=== PATIENT | male | born 1985 | race Native Hawaiian/Other Pacific Islander ===

== ENCOUNTER 2017-12-26 21:15 | Inpatient (IN) | payer MEDICAID ==
--- NOTE | 2017-12-26 21:30 | C.PDOC ---
History Of Present Illness 32 year old male presents to the ED as a transfer from [facility] to be admitted to the Psychiatry Unit. Patient has a history of Schizophrenia. Chief Complaint (Nursing): Psychiatric Evaluation History Per: Patient, Other ([facility] paperwork ) History/Exam Limitations: no limitations Suicide/Self Injury Attempted (Context): None Modifying Factor(s): None Past Medical History Reviewed: Historical Data, Nursing Documentation, Vital Signs Vital Signs: Last Vital Signs Temp 98.2 F 12/26/17 21:20 Pulse 68 12/26/17 21:20 Resp 20 12/26/17 21:20 BP 136/96 H 12/26/17 21:20 Pulse Ox 99 12/26/17 21:20 - Medical History PMH: Schizophrenia Surgical History: No Surg Hx Family History: States: No Known Family Hx - Social History Hx Alcohol Use: Yes Hx Substance Use: No - Immunization History Hx Tetanus Toxoid Vaccination: No Hx Influenza Vaccination: No Hx Pneumococcal Vaccination: No Review Of Systems Except As Marked, All Systems Reviewed And Found Negative. Physical Exam - Physical Exam Appears: Non-toxic, No Acute Distress Skin: Warm, Dry, No Rash Head: Atraumatic, Normacephalic Eye(s): bilateral: Normal Inspection Nose: Normal Oral Mucosa: Moist Neck: Normal ROM, Supple Chest: Symmetrical Cardiovascular: Rhythm Regular Respiratory: Normal Breath Sounds, No Rales, No Rhonchi, No Wheezing Gastrointestinal/Abdominal: Soft, No Tenderness Extremity: Normal ROM Neurological/Psych: Oriented x3, Normal Speech Gait: Steady ED Course And Treatment O2 Sat by Pulse Oximetry: 99 (RA) Pulse Ox Interpretation: Normal Disposition Discussed With Dr.: Tereza Rodrigues Doctor Will See Patient In The: Hospital Counseled Patient/Family Regarding: Diagnosis - Disposition Disposition: HOSPITALIZED Disposition Time: 21:34 Condition: STABLE Forms: [facility] (Italian) - Clinical Impression Clinical Impression: Schizophrenia - Scribe Statement The provider has reviewed the documentation as recorded by the Scribe Adela Martinez All medical record entries made by the Scribe were at my direction and personally dictated by me. I have reviewed the chart and agree that the record accurately reflects my personal performance of the history, physical exam, medical decision making, and the department course for this patient. I have also personally directed, reviewed, and agree with the discharge instructions and disposition.
--- NOTE | 2017-12-26 22:13 | PCM.BM ---
<Sania Marshall - Last Filed: 12/26/17 22:07> Treatment Plan Problems - Problems identified on initial assessmt Auditory Hallucination Date Initiated: 12/26/17 Time Initiated: 22:08 Assessment reference: NA Status: Active Anxiety Date Initiated: 12/26/17 Time Initiated: 22:15 Assessment reference: NA Status: Active Treatment assets and liabiliti Patient Assests: adapts well, cooperative, educated, self-reliant, ADL independent, good support system, negotiates basic needs, cognitively intact Patient Liabilities: live alone (Lives with mother), substance abuse (None), medical problems (None) - Milieu Protocol Maintain good personal hygiene: daily Encourage regular showers, daily Remind patient to perform daily oral care, daily Assist patient to perform ADL's (Self), other Assist patient to perform ADL's Conduct patient checks and document Observation sheet: Q15 minutes (Safety) Maintain personal safety: every shift Educate patient to report safety concerns to staff, every shift Monitor environment for contraband/sharps Medication safety: Monitor for expected outcome, potential side effects: every shift, Assess barriers to learning: every shift, Assess readiness for medication education: every shift <Josh Macario - Last Filed: 12/29/17 11:29> - Diagnosis (1) Schizophrenia Status: Acute Interventions: 12/29/17 11:29 * Assess/adjust medications daily and /or as needed * See patient on an individual basis 7x/week to assess status of hallucinations * Discuss risks, benefits, side effects and alternatives of medications * <Rosalva Hardwick - Last Filed: 12/29/17 13:37> Family Contact Family involvement: Family/SO is involved Family contact: Patient agrees to contact Family contact name: Taisha Cheatham-mother Family contacted how many times per week?: 1 - Goals for Treatment Patient goals for treatment: "I need an outpatient program." Discharge/Continuing Care - Education Needs Education Needs: Patient Medication, Patient Coping Skills - Discharge Discharge Criteria: Tolerates medication w/o severe side effects, Reduction of target symptoms Discharge to:: Home, With Family - Treatment Team Participation Discussed with Family/SO: No Was Patient/Family/SO present at Treatment Team Meeting: Yes
[2017-12-29] MEDS ORDERED: Pneumococcal 23-Valent Vaccine IM ONE (10:00)
[2017-12-29] MEDS ORDERED: Influenza Vaccine 60 MCG/0.5 ML SYR (3 yr & up) IM ONE (10:00)
--- NOTE | 2017-12-29 11:23 | PCM.PYCHPN ---
Psychiatric Progress Note - Psychiatric Progress Note Patient seen today, length of contact: 15 min Patient Chief Complaint: I am feeling jose luis.' Problems Identified/Issues Discussed: Patient seen and evaluated, chart reviewed and discussed with the nurse. Pt reports reports irritability and agitation. Pt remained disorganized and internally preoccupied. He remained isolated and withdrawn, and confined to his room. He denies any auditory hallucinations, visual hallucinations, or any paranoia. Patient is compliant with medications and denies any side effects. Symptoms are improving but pt needs more time to stabilize. Support and psychoeducation given. Medication Change: Yes Medical Record Reviewed: Yes Mental Status Examination - Cognitive Function Orientation: Person, Place, Situation, Time Memory: Intact Attention: WNL Concentration: Poor Association: Loose Fund of Knowledge: WNL - Mood Mood: Depressed, Anxious - Affect Affect: Constricted - Speech Speech: Soft - Language Language: Anomia - Formal Thought Process Formal Thought Process: Hallucinations, Delusions, Paranoia, Loosening of associations, Circumstantial - Suicidal Ideation Suicidal Ideation: No - Homicidal Ideation Homicidal Ideation: No Goal/Treatment Plan - Goal/Treatment Plan Need for Continued Stay: Severe depression anxiety, Severe functional impairment Progress Toward Problem(s) and Goals/Treatment Plan: Bipolar disorder MRE depressed severe with psychotic features R/O Schizoaffective disorder bipolar type CBT Psychoeducation Supportive therapy, group therapy, individual therapy Prolixin 5 mg by mouth twice a day Cogentin 1 mg by mouth twice a day Trazodone 100 mg by mouth daily at bedtime Hydroxyzine 25 mg by mouth every 6 hours when necessary Lamictal 25 mg Po Daily Aripiprazole 10 mg by mouth daily at bedtime - Smoking Cessation Smoking Cessation Initiated: No
--- NOTE | 2017-12-29 21:20 | PCM.PSYCH ---
Initial Psychiatric Evaluation - Initial Psychiatric Evaluation Legal Status: Capacity Chief Complaint (in patient's own words): I HAD AN ARGUMENT WITH MY PARENTS BEXCAUSE THEY REFUSEDTO ORDER TAKE OUT FOR ME. THEY POWDER NEDICINE AND PIUT IT IN MY FOOD Patient's Reaction to Hospitalization: I AM UNSURE WHY I AM HERE History of Present Illness and Precipitating Events: PT IS A 32 YEAR OLD SINGLE DOMICILED UNEMPLOYED MALE WHO ARGUED WITH PARENTS. PT HAD BEEN PRESCRIBED LATU[employer] WHICH INSURANCE DID NOT COVER AND COST OVER 1600NDOLLARS A MONTH. PT STATED HIS FATHER SAID THAT IS HIS TAKE HOME PAY FOR T6WO WEEKS. PT HAS HAD PREVIOUS HOSPITALIZATIONS AT [facility]. HE WAS HOSPITALIZED THERE AFTER ARGUMENT WITH HIS PPARENTS . PT HAS HAD ONE SUICIDE ATTEMPT WHERE HE TRIEED TO KILL HIMSELF BY OVERDOSING ON VODKA. 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 Current Medications: Active Medications Generic Name Dose Route Start Last Admin Trade Name Freq PRN Reason Stop Dose Admin Aripiprazole 10 mg 12/28/17 10:00 12/29/17 09:45 Abilify PO 10 mg DAILY MAKENNA Administration Fluphenazine HCl 5 mg 12/29/17 12:00 12/29/17 17:09 Prolixin PO 5 mg BID MAKENNA Administration Hydroxyzine HCl 50 mg 12/27/17 00:38 12/27/17 00:46 Atarax PO 50 mg Q6 PRN Administration Anxiety Topiramate 25 mg 12/28/17 18:00 12/29/17 17:09 Topamax PO 25 mg BID MAKENNA Administration Past Psychiatric History - Past Psychiatric History Prior Professional Help: SEE HPI Pertinent Medical Hx (Current Medical&Sleep Prob, Allergies): Allergies Allergy/AdvReac Type Severity Reaction Status Date / Time pollen extracts Allergy Verified 12/26/17 21:23 Review of Systems - EENT Eyes: UNREMARKABLE Nose/Mouth/Throat: UNREMARKABLE - Cardiovascular Cardiovascular: UNREMARKABLE - Respiratory Respiratory: UNREMARKABLE - Gastrointestinal Gastrointestinal: UNREMARKABLE - Genitourinary Genitourinary: UNREMARKABLE - Reproductive: Male Reproductive:Male: UNREMARKABLE - Musculoskeletal Musculoskeletal: UNREMARKABLE - Integumentary Integumentary: UNREMARKABLE - Neurological Neurological: UNREMARKABLE - Psychiatric Psychiatric: Memory Loss, Paranoia - Endocrine Endocrine: UNREMARKABLE - Hematologic/Lymphatic Hematologic: UNREMARKABLE Mental Status Examination - Personal Presentation Personal Presentation: Looks younger than stated age - Affect Affect: Broad - Motor Activity Motor Activity: Calm - Reliability in Providing Information Reliability in Providing Information: Good - Speech Speech: Organized, Relevant, Coherent - Mood Mood: Neutral - Formal Thought Process Formal Thought Process: Delusions, Paranoia - Obsessions/Compulsions Obsessions: No Compulsions: No - Cognitive Functions Orientation: Person, Place, Situation, Time Attention/Concentration: Attentive Abstract Thinking: As evidence by abstract perception of proverbs Judgement: Intact, as evidence by: Other Memory: Recent intact, as evidence by: Ability to recall events of the day, Remote intact, as evidenced by: Other - Risk Risk: Elopement, Diminished functioning - Strength & Assets Inventory Strength & Assets Inventory: Intelligence, Education, Employment history - Limitations Limitations: Other DSM 5 DX - DSM 5 DSM 5 Diagnosis: BIPOLAR DISORDER ABILIFY 10 MG PO QDAILY CBT DC SUPPORTIVE INDIVIDUAL PSYCHOTHERAPY - Recommended/Plan of Treatment Treatment Recommendations and Plan of Treatment: BIPOLAR DISORDER VS SCHIZOAFFECTIVE DISORDER ABILIFY DC CBT SUPPORTIVE PSYCHOTHERAPY Projected ELOS: 10 DAYS Prognosis: FAIR Discharge Plan and Discharge Criteria: NO PARANOIA - Smoking Cessation Smoking Cessation Initiated: No
--- NOTE | 2017-12-29 21:29 | PCM.PYCHPN ---
Psychiatric Progress Note - Psychiatric Progress Note Patient seen today, length of contact: 15 min Patient Chief Complaint: I NEED TO GET MY OWN PLACE Problems Identified/Issues Discussed: PT SEEN AND EXAMINED DISCUSSED WITH STAFF DISCUSSEDWITH PT WHY HE THINKS PARENTS ARE CRUSHING MEDICINE AND PUTTING IT IN HIS FOOD Medical Problems: NOTHING ACUTE Diagnostic Results: REVIEWED DSM 5 Symptoms Update: DELUSIONAL Medication Change: No Medical Record Reviewed: Yes Mental Status Examination - Cognitive Function Orientation: Person, Place, Situation, Time Memory: Intact Attention: WNL Concentration: WNL Association: WNL Fund of Knowledge: WNL - Mood Mood: Neutral - Affect Affect: Broad - Speech Speech: Appropriate, Soft - Language Language: Anomia - Formal Thought Process Formal Thought Process: Delusions, Paranoia - Suicidal Ideation Suicidal Ideation: No - Homicidal Ideation Homicidal Ideation: No Goal/Treatment Plan - Goal/Treatment Plan Need for Continued Stay: Remain at risks for inpatient hospitalization, Severe depression anxiety, Discharge may exacerbated symptoms, Severe functional impairment Progress Toward Problem(s) and Goals/Treatment Plan: BIPOLAR DISORDER VS SCHIZOAFFECTIVE DISORDER VIKY PALMER CBT SUPPORTIVE PSYCHOTHERAPY - Smoking Cessation Smoking Cessation Initiated: No
--- NOTE | 2017-12-31 00:50 | PCM.PYCHPN ---
Psychiatric Progress Note - Psychiatric Progress Note Patient seen today, length of contact: 15 min Patient Chief Complaint: I am feeling joes luis.' Problems Identified/Issues Discussed: Patient seen and evaluated, chart reviewed and discussed with the nurse. Pt reports reports irritability and agitation. Pt remained disorganized and internally preoccupied. He remained isolated and withdrawn, and confined to his room. He denies any auditory hallucinations, visual hallucinations, or any paranoia. Patient is compliant with medications and denies any side effects. Symptoms are improving but pt needs more time to stabilize. Support and psychoeducation given. Medication Change: Yes Medical Record Reviewed: Yes Mental Status Examination - Cognitive Function Orientation: Person, Place, Situation, Time Memory: Intact Attention: WNL Concentration: Poor Association: Loose Fund of Knowledge: WNL - Mood Mood: Depressed, Anxious - Affect Affect: Constricted - Speech Speech: Soft - Language Language: Anomia - Formal Thought Process Formal Thought Process: Hallucinations, Delusions, Paranoia, Loosening of associations, Circumstantial - Suicidal Ideation Suicidal Ideation: No - Homicidal Ideation Homicidal Ideation: No Goal/Treatment Plan - Goal/Treatment Plan Need for Continued Stay: Severe depression anxiety, Severe functional impairment Progress Toward Problem(s) and Goals/Treatment Plan: Bipolar disorder MRE depressed severe with psychotic features R/O Schizoaffective disorder bipolar type CBT Psychoeducation Supportive therapy, group therapy, individual therapy Prolixin 5 mg by mouth twice a day Cogentin 1 mg by mouth twice a day Trazodone 100 mg by mouth daily at bedtime Hydroxyzine 25 mg by mouth every 6 hours when necessary Topamax 50 mg by mouth twice a day Aripiprazole 10 mg by mouth daily at bedtime
--- NOTE | 2017-12-31 10:20 | PCM.PYCHPN ---
Psychiatric Progress Note - Psychiatric Progress Note Patient seen today, length of contact: 15 min Patient Chief Complaint: I am feeling jose luis.' Problems Identified/Issues Discussed: Patient seen and evaluated, chart reviewed and discussed with the nurse. Pt reports reports irritability and agitation. Pt appears more organized than before but remained delusional. rehabilitation caseworker spoke with the parents. As per the parents he stops taking his medications and becomes aggressive and agitated towards them. He punches and throws things at them. He remained isolated and withdrawn, and confined to his room. He denies any auditory hallucinations, visual hallucinations, or any paranoia. Patient is compliant with medications, per staff he had an EPS reaction from Prolixin. Symptoms are improving but pt needs more time to stabilize. Support and psychoeducation given. Medication Change: Yes Medical Record Reviewed: Yes Mental Status Examination - Cognitive Function Orientation: Person, Place, Situation, Time Memory: Intact Attention: WNL Concentration: Poor Association: Loose Fund of Knowledge: WNL - Mood Mood: Depressed, Anxious - Affect Affect: Constricted - Speech Speech: Soft - Language Language: Anomia - Formal Thought Process Formal Thought Process: Hallucinations, Delusions, Paranoia, Loosening of associations, Circumstantial - Suicidal Ideation Suicidal Ideation: No - Homicidal Ideation Homicidal Ideation: No Goal/Treatment Plan - Goal/Treatment Plan Need for Continued Stay: Severe depression anxiety, Severe functional impairment Progress Toward Problem(s) and Goals/Treatment Plan: Bipolar disorder MRE depressed severe with psychotic features R/O Schizoaffective disorder bipolar type CBT Psychoeducation Supportive therapy, group therapy, individual therapy DC Prolixin 5 mg by mouth twice a day Cogentin 1 mg by mouth twice a day Trazodone 100 mg by mouth daily at bedtime Hydroxyzine 25 mg by mouth every 6 hours when necessary Topamax 50 mg by mouth twice a day Aripiprazole 10 mg by mouth daily at bedtime
[2017-12-31] MEDS ORDERED: DiphenhydrAMINE 50 mg/ml Inj IM STA (20:11)
--- NOTE | 2018-01-02 17:52 | PCM.PYCHPN ---
Psychiatric Progress Note - Psychiatric Progress Note Patient seen today, length of contact: 16 min Patient Chief Complaint: "I still can't sleep well" Problems Identified/Issues Discussed: The pt is seen, chart reviewed, case discussed with staff. Support and psychoeducation given No new symptoms reported, improving slowly and needs more time No SEs from medications, risks discussed. He didn't want Prolixin but OK with Abilify Medication Change: Yes Medical Record Reviewed: Yes Mental Status Examination - Cognitive Function Orientation: Person, Place, Situation, Time Memory: Intact Attention: WNL Concentration: Poor Association: Loose Fund of Knowledge: WNL - Mood Mood: Depressed, Anxious - Affect Affect: Constricted - Speech Speech: Soft - Language Language: Anomia - Formal Thought Process Formal Thought Process: Hallucinations, Delusions, Paranoia, Loosening of associations, Circumstantial - Suicidal Ideation Suicidal Ideation: No - Homicidal Ideation Homicidal Ideation: No Goal/Treatment Plan - Goal/Treatment Plan Need for Continued Stay: Severe depression anxiety, Discharge may exacerbated symptoms, Severe functional impairment Progress Toward Problem(s) and Goals/Treatment Plan: Continue medications Support and psychoeducation daily Attend groups and activities daily After care planning by STEPH
--- NOTE | 2018-01-03 13:14 | PCM.PYCHPN ---
Psychiatric Progress Note - Psychiatric Progress Note Patient seen today, length of contact: 15 min Patient Chief Complaint: "I am tired" Problems Identified/Issues Discussed: The pt is seen, chart reviewed, case discussed with staff. Support and psychoeducation given No new symptoms reported, improving VERY slowly and needs more time No SEs from medications, risks discussed. Abilify increased Medication Change: Yes Medical Record Reviewed: Yes Mental Status Examination - Cognitive Function Orientation: Person, Place, Situation, Time Memory: Intact Attention: WNL Concentration: Poor Association: Loose Fund of Knowledge: WNL - Mood Mood: Depressed, Anxious - Affect Affect: Constricted - Speech Speech: Soft - Language Language: Anomia - Formal Thought Process Formal Thought Process: Delusions, Paranoia, Loosening of associations, Circumstantial - Suicidal Ideation Suicidal Ideation: No - Homicidal Ideation Homicidal Ideation: No Goal/Treatment Plan - Goal/Treatment Plan Need for Continued Stay: Discharge may exacerbated symptoms, Severe functional impairment Progress Toward Problem(s) and Goals/Treatment Plan: Continue medications Support and psychoeducation daily Attend groups and activities daily After care planning by STEPH
--- NOTE | 2018-01-04 23:42 | PCM.PYCHPN ---
Psychiatric Progress Note - Psychiatric Progress Note Patient seen today, length of contact: 15 minutes Patient Chief Complaint: I'm doing good. Problems Identified/Issues Discussed: Patient seen, chart reviewed, case discussed with the staff. Issues related to illness and treatment were discussed with the patient and staff. Reported compliant with treatment with no adverse effects. Tolerating treatment very well. Awake, alert and confused Calm and cooperative with good eye contact. Mood reported as okay. Affect inappropriate, flat. Treatment discussed with the patient. Needs more time for stabilization. Aftercare discussed with the patient. Denied any delusions, auditory or visual hallucinations, suicidal ideations or homicidal ideations at the time of evaluation. Medical Problems: None reported Diagnostic Results: Reviewed DSM 5 Symptoms Update: Some improvement with treatment Medication Change: No Medical Record Reviewed: Yes Mental Status Examination - Cognitive Function Orientation: Person, Place, Situation, Time Memory: Intact Attention: WNL Concentration: WNL Association: Loose Fund of Knowledge: WNL - Mood Mood: Neutral - Affect Affect: Flat - Speech Speech: Soft - Language Language: Anomia - Formal Thought Process Formal Thought Process: Paranoia, Loosening of associations - Suicidal Ideation Suicidal Ideation: No - Homicidal Ideation Homicidal Ideation: No Goal/Treatment Plan - Goal/Treatment Plan Need for Continued Stay: Remain at risks for inpatient hospitalization, Discharge may exacerbated symptoms, Severe functional impairment Progress Toward Problem(s) and Goals/Treatment Plan: Patient education. Supportive therapy. Continue treatment as before. Estimated Date of D/C: 01/13/18 - Smoking Cessation Smoking Cessation Initiated: No Reason for not providing: Patient doesn't smoke cigarettes.
--- NOTE | 2018-01-05 13:08 | PCM.BM ---
<Petra Smith - Last Filed: 01/05/18 13:07> Treatment Plan Problems - Problems identified on initial assessmt Auditory Hallucination Date Initiated: 12/26/17 Time Initiated: 22:08 Assessment reference: NA Status: Active Anxiety Date Initiated: 12/26/17 Time Initiated: 22:15 Assessment reference: NA Status: Active Treatment assets and liabiliti Patient Assests: adapts well, cooperative, educated, self-reliant, ADL independent, good support system, negotiates basic needs, cognitively intact Patient Liabilities: live alone (Lives with mother), substance abuse (None), medical problems (None) - Milieu Protocol Maintain good personal hygiene: daily Encourage regular showers, daily Remind patient to perform daily oral care, daily Assist patient to perform ADL's (Self), other Assist patient to perform ADL's Conduct patient checks and document Observation sheet: Q15 minutes (Safety) Maintain personal safety: every shift Educate patient to report safety concerns to staff, every shift Monitor environment for contraband/sharps Medication safety: Monitor for expected outcome, potential side effects: every shift, Assess barriers to learning: every shift, Assess readiness for medication education: every shift Milieu Narrative: Bipolar disorder MRE depressed severe with psychotic features R/O Schizoaffective disorder bipolar type CBT Psychoeducation Supportive therapy, group therapy, individual therapy DC Prolixin 5 mg by mouth twice a day Cogentin 1 mg by mouth twice a day Trazodone 100 mg by mouth daily at bedtime Hydroxyzine 25 mg by mouth every 6 hours when necessary Topamax 50 mg by mouth twice a day Aripiprazole 10 mg by mouth daily at bedtime Family Contact Family involvement: Family/SO is involved Family contact: Patient agrees to contact Family contact name: Taisha Cheatham-father Family contacted how many times per week?: 1 Family contact comment: "He needs to live in a prison." - Goals for Treatment Patient goals for treatment: "I want to go home." Patient's family/SO goals for treatment: For patient to live in a prison Discharge/Continuing Care - Education Needs Education Needs: Patient Medication, Patient Coping Skills - Discharge Discharge Criteria: Tolerates medication w/o severe side effects, Reduction of target symptoms Discharge to:: Home, With Family - Treatment Team Participation Patient/Family/SO Statement: Bipolar disorder MRE depressed severe with psychotic features R/O Schizoaffective disorder bipolar type CBT Psychoeducation Supportive therapy, group therapy, individual therapy DC Prolixin 5 mg by mouth twice a day Cogentin 1 mg by mouth twice a day Trazodone 100 mg by mouth daily at bedtime Hydroxyzine 25 mg by mouth every 6 hours when necessary Topamax 50 mg by mouth twice a day Aripiprazole 10 mg by mouth daily at bedtime Discussed with Family/SO: No Was Patient/Family/SO present at Treatment Team Meeting: Yes Treatment Plan Review - Problem Auditory Hallucination Time Initiated: 22:08 Anxiety Time Initiated: 22:15 - Discharge / Continuing Care Discharge to:: Home, With Family, Other Behavioral Health Services: Intensive Outpatient, Residential treatment Health Needs: Follow up care/test, Medications/Rx, Alcohol/Drug treatment <Sania Marshall - Last Filed: 01/05/18 13:24> Treatment Plan Review - Problem Auditory Hallucination Date Initiated: 01/05/18 Time Initiated: 13:24 Progress toward outcomes: resolved Anxiety Date Initiated: 01/05/18 Time Initiated: 13:24 Progress toward outcomes: improved
[2018-01-05] MEDS: Aluminum Hydroxide/Magnesium Hydroxide Susp (30 mL) PO PRN (21:36)
--- NOTE | 2018-01-06 17:42 | PCM.PYCHPN ---
Psychiatric Progress Note - Psychiatric Progress Note Patient seen today, length of contact: 15 minutes Patient Chief Complaint: I'm feeling good. Problems Identified/Issues Discussed: Patient seen, chart reviewed, case discussed with the staff. Issues related to illness and treatment were discussed with the patient and staff. Reported compliant with treatment with no adverse effects. Tolerating treatment very well. Reported feeling better. According to staff patient was little social with other patients. Awake, alert and confused Calm and cooperative with good eye contact. Mood reported as okay. Affect inappropriate, flat. Treatment discussed with the patient. Needs more time for stabilization. Aftercare discussed with the patient. Denied any delusions, auditory or visual hallucinations, suicidal ideations or homicidal ideations at the time of evaluation. Medical Problems: None reported Diagnostic Results: Reviewed DSM 5 Symptoms Update: Some improvement with treatment Medication Change: No Medical Record Reviewed: Yes Mental Status Examination - Cognitive Function Orientation: Person, Place, Situation, Time Memory: Intact Attention: WNL Concentration: WNL Association: Loose Fund of Knowledge: WNL Decription of patient's judgement and insights: Fair - Mood Mood: Neutral - Affect Affect: Flat - Speech Speech: Soft - Language Language: Anomia - Formal Thought Process Formal Thought Process: Loosening of associations - Suicidal Ideation Suicidal Ideation: No - Homicidal Ideation Homicidal Ideation: No Goal/Treatment Plan - Goal/Treatment Plan Need for Continued Stay: Remain at risks for inpatient hospitalization, Discharge may exacerbated symptoms, Severe functional impairment Progress Toward Problem(s) and Goals/Treatment Plan: Patient education. Supportive therapy. Continue treatment as before. Estimated Date of D/C: 01/13/18 - Smoking Cessation Smoking Cessation Initiated: No
--- NOTE | 2018-01-07 16:52 | PCM.PYCHPN ---
Psychiatric Progress Note - Psychiatric Progress Note Patient seen today, length of contact: 15 minutes Patient Chief Complaint: I'm feeling good. I slept last night. Problems Identified/Issues Discussed: Patient seen, chart reviewed, case discussed with the staff. Issues related to illness and treatment were discussed with the patient and staff. Reported compliant with treatment with no adverse effects. Tolerating treatment very well. Reported feeling better. According to staff patient appeared paranoid and was pacing on the unit, not sleeping. Patient denied. Awake, alert and confused Calm and cooperative with good eye contact. Mood reported as okay. Affect inappropriate, flat. Treatment discussed with the patient. Needs more time for stabilization. Aftercare discussed with the patient. Denied any delusions, auditory or visual hallucinations, suicidal ideations or homicidal ideations at the time of evaluation. Medical Problems: None reported Diagnostic Results: Reviewed Medication Change: Yes (Dose of Abilify increased to 30 mg at bedtime) Medical Record Reviewed: Yes Mental Status Examination - Cognitive Function Orientation: Person, Place, Situation, Time Memory: Intact Attention: WNL Concentration: WNL Association: Loose Fund of Knowledge: WNL Decription of patient's judgement and insights: Fair - Mood Mood: Neutral - Affect Affect: Flat - Speech Speech: Soft - Language Language: Anomia - Formal Thought Process Formal Thought Process: Paranoia, Loosening of associations - Suicidal Ideation Suicidal Ideation: No - Homicidal Ideation Homicidal Ideation: No Goal/Treatment Plan - Goal/Treatment Plan Need for Continued Stay: Remain at risks for inpatient hospitalization, Discharge may exacerbated symptoms, Severe functional impairment Progress Toward Problem(s) and Goals/Treatment Plan: Patient education. Supportive therapy. We will increase the dose of Abilify to 30 mg at bedtime. Continue rest of the treatment as before. Estimated Date of D/C: 01/13/18 - Smoking Cessation Smoking Cessation Initiated: No Reason for not providing: Patient does not smoke cigarettes.
--- NOTE | 2018-01-08 15:09 | PCM.PYCHPN ---
Psychiatric Progress Note - Psychiatric Progress Note Patient seen today, length of contact: 15 minutes Patient Chief Complaint: I'm feeling good. I am seeing a bug on you. Problems Identified/Issues Discussed: Patient seen, chart reviewed, case discussed with the staff. Issues related to illness and treatment were discussed with the patient and staff. Reported compliant with treatment with no adverse effects. Tolerating treatment very well. Reported feeling better. He'll during evaluation patient reported seeing bug on psychiatrist which were disappearing later on one corner of the room. Offered to start Zyprexa and to discontinue Abilify, patient refused. Offered Haldol. Patient accepted. We'll start Haldol 5 mg by mouth twice a day. Awake, alert and oriented to person and place. Calm and partially cooperative. There are scadic eye movements. Mood reported as okay. Affect inappropriate, flat. Treatment discussed with the patient. Needs more time for stabilization. Aftercare discussed with the patient. Denied any delusions, auditory or visual hallucinations, suicidal ideations or homicidal ideations at the time of evaluation. Medical Problems: None reported Diagnostic Results: Reviewed Medication Change: Yes (We'll start Haldol 5 mg twice a day) Medical Record Reviewed: Yes Mental Status Examination - Cognitive Function Orientation: Person, Place, Situation, Time Memory: Intact Attention: WNL Concentration: WNL Association: Loose Fund of Knowledge: WNL Decription of patient's judgement and insights: Fair - Mood Mood: Neutral - Affect Affect: Flat - Speech Speech: Soft - Language Language: Anomia - Formal Thought Process Formal Thought Process: Paranoia, Loosening of associations - Suicidal Ideation Suicidal Ideation: No - Homicidal Ideation Homicidal Ideation: No Goal/Treatment Plan - Goal/Treatment Plan Need for Continued Stay: Remain at risks for inpatient hospitalization, Discharge may exacerbated symptoms, Severe functional impairment Progress Toward Problem(s) and Goals/Treatment Plan: Patient education. Supportive therapy. We will start Haldol 5 mg twice a day. Continue rest of the treatment as before. Estimated Date of D/C: 01/13/18 - Smoking Cessation Smoking Cessation Initiated: No Reason for not providing: Patient doesn't smoke cigarettes
[2018-01-08] MEDS: Aluminum Hydroxide/Magnesium Hydroxide Susp (30 mL) PO PRN (18:01)
--- NOTE | 2018-01-09 08:54 | PCM.BM ---
<AbRosalva Ferrer - Last Filed: 01/09/18 08:53> Treatment Plan Problems - Problems identified on initial assessmt Auditory Hallucination Date Initiated: 12/26/17 Time Initiated: 13:24 Assessment reference: NA Status: Active Anxiety Date Initiated: 12/26/17 Time Initiated: 13:24 Assessment reference: NA Status: Active Treatment assets and liabiliti Patient Assests: adapts well, cooperative, educated, self-reliant, ADL independent, good support system, negotiates basic needs, cognitively intact Patient Liabilities: live alone (Lives with mother), substance abuse (None), medical problems (None) - Milieu Protocol Maintain good personal hygiene: daily Encourage regular showers, daily Remind patient to perform daily oral care, daily Assist patient to perform ADL's (Self), other Assist patient to perform ADL's Conduct patient checks and document Observation sheet: Q15 minutes (Safety) Maintain personal safety: every shift Educate patient to report safety concerns to staff, every shift Monitor environment for contraband/sharps Medication safety: Monitor for expected outcome, potential side effects: every shift, Assess barriers to learning: every shift, Assess readiness for medication education: every shift Milieu Narrative: Patient education. Supportive therapy. We will increase the dose of Abilify to 30 mg at bedtime. Continue rest of the treatment as before. Family Contact Family involvement: Family/SO is involved Family contact: Patient agrees to contact Family contact name: Taisha Cheatham-father Family contacted how many times per week?: 1 Family contact comment: "He needs to live in a penitentiary." - Goals for Treatment Patient goals for treatment: "I want to go home." Patient's family/SO goals for treatment: For patient to live in a penitentiary Discharge/Continuing Care - Education Needs Education Needs: Patient Medication, Patient Coping Skills - Discharge Discharge Criteria: Tolerates medication w/o severe side effects, Reduction of target symptoms Discharge to:: Home, With Family, Other - Treatment Team Participation Patient/Family/SO Statement: Patient education. Supportive therapy. We will increase the dose of Abilify to 30 mg at bedtime. Continue rest of the treatment as before. Discussed with Family/SO: No Was Patient/Family/SO present at Treatment Team Meeting: Yes Treatment Plan Review - Problem Auditory Hallucination Date Initiated: 01/05/18 Time Initiated: 13:24 Progress toward outcomes: resolved Anxiety Date Initiated: 01/05/18 Time Initiated: 13:24 Progress toward outcomes: improved - Discharge / Continuing Care [facility] Health Needs: Medications/Rx, Alcohol/Drug treatment <Khadra Gonsales - Last Filed: 01/09/18 11:10> Treatment Plan Review - Problem Auditory Hallucination Date Initiated: 01/09/18 Time Initiated: 11:10 Progress toward outcomes: unchanged Anxiety Date Initiated: 01/09/18 Time Initiated: 11:10 Progress toward outcomes: unchanged <Michelle Douglass - Last Filed: 01/10/18 13:49> - Diagnosis (1) Schizophrenia Status: Acute Interventions: 12/29/17 11:29 * Assess/adjust medications daily and /or as needed * See patient on an individual basis 7x/week to assess status of hallucinations * Discuss risks, benefits, side effects and alternatives of medications *
--- NOTE | 2018-01-09 19:36 | PCM.PYCHPN ---
Psychiatric Progress Note - Psychiatric Progress Note Patient seen today, length of contact: 15 minutes Patient Chief Complaint: I'm feeling little better. Problems Identified/Issues Discussed: Patient seen, chart reviewed, case discussed with the staff. Issues related to illness and treatment were discussed with the patient and staff. Reported compliant with treatment with no adverse effects. Tolerating treatment very well. Reported feeling little better. We'll increase the dose of Haldol to 10 mg twice a day and reported reduced dose of Abilify to 20 mg. Patient agreed. Awake, alert and oriented to person and place. Calm and partially cooperative. Mood reported as okay. Affect inappropriate, flat. Treatment discussed with the patient. Needs more time for stabilization. Aftercare discussed with the patient. Denied any delusions, auditory or visual hallucinations, suicidal ideations or homicidal ideations at the time of evaluation. Medical Problems: None reported Diagnostic Results: Reviewed DSM 5 Symptoms Update: Some improvement with treatment Medication Change: Yes (We will increase the dose of Haldol to 10 mg twice a day and reduce the dos) Medical Record Reviewed: Yes Mental Status Examination - Cognitive Function Orientation: Person, Place, Situation, Time Memory: Intact Attention: WNL Concentration: WNL Association: Loose Fund of Knowledge: WNL Decription of patient's judgement and insights: Fair - Mood Mood: Neutral - Affect Affect: Flat - Speech Speech: Soft - Language Language: Anomia - Formal Thought Process Formal Thought Process: Paranoia, Loosening of associations - Suicidal Ideation Suicidal Ideation: No - Homicidal Ideation Homicidal Ideation: No Goal/Treatment Plan - Goal/Treatment Plan Need for Continued Stay: Remain at risks for inpatient hospitalization, Discharge may exacerbated symptoms, Severe functional impairment Progress Toward Problem(s) and Goals/Treatment Plan: Patient education. Supportive therapy. We will increase the dose of Haldol to 10 mg twice a day and reduce dose of Abilify to 20 mg daily. Continue rest of the treatment as before. Estimated Date of D/C: 01/13/18 - Smoking Cessation Smoking Cessation Initiated: No Reason for not providing: Patient doesn't smoke cigarettes.
[2018-01-09] MEDS: Aluminum Hydroxide/Magnesium Hydroxide Susp (30 mL) PO PRN (19:42)
--- NOTE | 2018-01-10 18:57 | PCM.PYCHPN ---
Psychiatric Progress Note - Psychiatric Progress Note Patient seen today, length of contact: 15 min Patient Chief Complaint: I'm feeling little better. My throat is dry. Problems Identified/Issues Discussed: Patient seen, chart reviewed, case discussed with the staff. Issues related to illness and treatment were discussed with the patient and staff. Reported compliant with treatment with no adverse effects. Tolerating treatment very well. Reported feeling little better. Also reported that his throat is dry. Patient believes that this is because of some medications other than Cogentin. Education provided about the medications. Still patient was fixated that his throat is dry due to Topamax. Awake, alert and oriented to person and place. Calm and partially cooperative. Mood reported as okay. Affect inappropriate, flat. Treatment discussed with the patient. Needs more time for stabilization. Aftercare discussed with the patient. Denied any delusions, auditory or visual hallucinations, suicidal ideations or homicidal ideations at the time of evaluation. Medical Problems: None reported Diagnostic Results: Reviewed DSM 5 Symptoms Update: Some improvement with treatment Medication Change: No Medical Record Reviewed: Yes Mental Status Examination - Cognitive Function Orientation: Person, Place, Situation, Time Memory: Intact Attention: WNL Concentration: Poor Association: Loose Fund of Knowledge: WNL Decription of patient's judgement and insights: Fair - Mood Mood: Neutral - Affect Affect: Flat - Speech Speech: Soft - Language Language: Anomia - Formal Thought Process Formal Thought Process: Delusions, Paranoia, Loosening of associations, Circumstantial - Suicidal Ideation Suicidal Ideation: No - Homicidal Ideation Homicidal Ideation: No Goal/Treatment Plan - Goal/Treatment Plan Need for Continued Stay: Remain at risks for inpatient hospitalization, Discharge may exacerbated symptoms, Severe functional impairment Progress Toward Problem(s) and Goals/Treatment Plan: Patient education. Supportive therapy. Continue treatment as before. Estimated Date of D/C: 01/13/18 - Smoking Cessation Smoking Cessation Initiated: No
--- NOTE | 2018-01-11 12:42 | PCM.PYCHPN ---
Psychiatric Progress Note - Psychiatric Progress Note Patient seen today, length of contact: 15 min Patient Chief Complaint: "You know that nurses are playing a game on me" Problems Identified/Issues Discussed: The pt is seen, chart reviewed, case discussed with staff. Support and psychoeducation given No new symptoms reported, improving VERY slowly and needs more time No SEs from medications, risks discussed. Abilify increased again and he is also on haldol now Medication Change: Yes (abilify 30 mg now) Medical Record Reviewed: Yes Mental Status Examination - Cognitive Function Orientation: Person, Place, Situation, Time Memory: Intact Attention: WNL Concentration: Poor Association: Loose Fund of Knowledge: WNL - Mood Mood: Anxious - Affect Affect: Blunted (odd) - Speech Speech: Soft - Formal Thought Process Formal Thought Process: Delusions, Paranoia, Loosening of associations, Circumstantial - Suicidal Ideation Suicidal Ideation: No - Homicidal Ideation Homicidal Ideation: No Goal/Treatment Plan - Goal/Treatment Plan Need for Continued Stay: Severe depression anxiety (severe psychosis), Discharge may exacerbated symptoms, Severe functional impairment Progress Toward Problem(s) and Goals/Treatment Plan: Continue medications - dose adjusted Consider ECT Support and psychoeducation daily Attend groups and activities daily After care planning by [facility] Estimated Date of D/C: 01/16/18
--- NOTE | 2018-01-12 16:56 | PCM.PYCHPN ---
Psychiatric Progress Note - Psychiatric Progress Note Patient seen today, length of contact: 15 min Patient Chief Complaint: I'm feeling little better. Problems Identified/Issues Discussed: Patient seen, chart reviewed, case discussed with the staff. Issues related to illness and treatment were discussed with the patient and staff. Reported compliant with treatment with no adverse effects. Tolerating treatment very well. Reported feeling better. Initially staff reported that patient was internally preoccupied. During evaluation patient appeared better than before. Appeared more coherent. Awake, alert and oriented to person and place. Calm and cooperative. Mood reported as okay. Affect inappropriate, flat. Treatment discussed with the patient. Needs more time for stabilization. Aftercare discussed with the patient. Denied any delusions, auditory or visual hallucinations, suicidal ideations or homicidal ideations at the time of evaluation. Medical Problems: None reported Diagnostic Results: Reviewed DSM 5 Symptoms Update: Some improvement with treatment. Medication Change: No Medical Record Reviewed: Yes Mental Status Examination - Cognitive Function Orientation: Person, Place, Situation, Time Memory: Intact Attention: WNL Concentration: WNL Association: Loose Fund of Knowledge: WNL Decription of patient's judgement and insights: Fair - Mood Mood: Anxious - Affect Affect: Blunted (odd) - Speech Speech: Soft - Language Language: Anomia - Formal Thought Process Formal Thought Process: Delusions, Loosening of associations, Circumstantial - Suicidal Ideation Suicidal Ideation: No - Homicidal Ideation Homicidal Ideation: No Goal/Treatment Plan - Goal/Treatment Plan Need for Continued Stay: Severe depression anxiety (severe psychosis), Discharge may exacerbated symptoms, Severe functional impairment Progress Toward Problem(s) and Goals/Treatment Plan: Patient education. Supportive therapy. Continue treatment as before. Estimated Date of D/C: 01/16/18 - Smoking Cessation Smoking Cessation Initiated: No
--- NOTE | 2018-01-13 23:31 | PCM.PYCHPN ---
Psychiatric Progress Note - Psychiatric Progress Note Patient seen today, length of contact: 15 min Patient Chief Complaint: I'm feeling better. Problems Identified/Issues Discussed: Patient seen, chart reviewed, case discussed with the staff. Issues related to illness and treatment were discussed with the patient and staff. Reported compliant with treatment with no adverse effects. Tolerating treatment very well. Reported feeling better. Patient appears more coherent. Awake, alert and oriented to person and place. Calm and more cooperative. Mood reported as okay. Affect appropriate. Treatment discussed with the patient. Needs more time for stabilization. Aftercare discussed with the patient. Denied any delusions, auditory or visual hallucinations, suicidal ideations or homicidal ideations at the time of evaluation. Medical Problems: None reported Diagnostic Results: Reviewed DSM 5 Symptoms Update: Improvement with treatment Medication Change: No Medical Record Reviewed: Yes Mental Status Examination - Cognitive Function Orientation: Person, Place, Situation, Time Memory: Intact Attention: WNL Concentration: WNL Association: WNL Fund of Knowledge: WNL Decription of patient's judgement and insights: Fair - Mood Mood: Anxious - Affect Affect: Other (Appropriate) - Speech Speech: Appropriate - Language Language: Anomia - Formal Thought Process Formal Thought Process: Loosening of associations Psychotic Thoughts and Behaviors: None - Suicidal Ideation Suicidal Ideation: No - Homicidal Ideation Homicidal Ideation: No Goal/Treatment Plan - Goal/Treatment Plan Need for Continued Stay: Remain at risks for inpatient hospitalization, Discharge may exacerbated symptoms, Severe functional impairment Progress Toward Problem(s) and Goals/Treatment Plan: Patient education. Supportive therapy. Continue treatment as before. Estimated Date of D/C: 01/16/18 - Smoking Cessation Smoking Cessation Initiated: No
--- NOTE | 2018-01-14 14:22 | PCM.PYCHPN ---
Psychiatric Progress Note - Psychiatric Progress Note Patient seen today, length of contact: 15 min Patient Chief Complaint: I'm feeling better. Problems Identified/Issues Discussed: Patient seen, chart reviewed, case discussed with the staff. Issues related to illness and treatment were discussed with the patient and staff. Reported compliant with treatment with no adverse effects. Tolerating treatment very well. Staff reported that at night patient's behavior was little odd, was repeated same question again and again and slept less. Patient denied. Reported feeling better. Patient appears more coherent. Awake, alert and oriented 3. Calm and more cooperative. Mood reported as okay. Affect appropriate. Treatment discussed with the patient. Needs more time for stabilization. Aftercare discussed with the patient. Denied any delusions, auditory or visual hallucinations, suicidal ideations or homicidal ideations at the time of evaluation. Medical Problems: None reported Diagnostic Results: Reviewed DSM 5 Symptoms Update: Some improvement with treatment. Medication Change: No Medical Record Reviewed: Yes Mental Status Examination - Cognitive Function Orientation: Person, Place, Situation, Time Memory: Intact Attention: WNL Concentration: WNL Association: WNL Fund of Knowledge: [facility] Decription of patient's judgement and insights: Fair - Mood Mood: Neutral - Affect Affect: Blunted - Speech Speech: Appropriate - Language Language: Word Retrieval - Formal Thought Process Formal Thought Process: Loosening of associations Psychotic Thoughts and Behaviors: None - Suicidal Ideation Suicidal Ideation: No - Homicidal Ideation Homicidal Ideation: No Goal/Treatment Plan - Goal/Treatment Plan Need for Continued Stay: Remain at risks for inpatient hospitalization, Discharge may exacerbated symptoms, Severe functional impairment Progress Toward Problem(s) and Goals/Treatment Plan: Patient education. Supportive therapy. Continue treatment as before. Estimated Date of D/C: 01/16/18 - Smoking Cessation Smoking Cessation Initiated: No Reason for not providing: Patient does not smoke cigarettes.
--- NOTE | 2018-01-15 23:20 | PCM.PYCHPN ---
Psychiatric Progress Note - Psychiatric Progress Note Patient seen today, length of contact: 15 min Patient Chief Complaint: I'm feeling better. Problems Identified/Issues Discussed: Patient seen, chart reviewed, case discussed with the staff. Issues related to illness and treatment were discussed with the patient and staff. Reported compliant with treatment with no adverse effects. Tolerating treatment very well. Reported feeling better. Patient appears more coherent. Awake, alert and oriented 3. Calm and more cooperative. Mood reported as okay. Affect appropriate. Staff confirmed the above. Treatment discussed with the patient. Needs more time for stabilization. Aftercare discussed with the patient. Denied any delusions, auditory or visual hallucinations, suicidal ideations or homicidal ideations at the time of evaluation. Medical Problems: None reported Diagnostic Results: Reviewed DSM 5 Symptoms Update: Much improvement with treatment. Medication Change: No Medical Record Reviewed: Yes Mental Status Examination - Cognitive Function Orientation: Person, Place, Situation, Time Memory: Intact Attention: WNL Concentration: WNL Association: WNL Fund of Knowledge: WN Decription of patient's judgement and insights: Fair - Mood Mood: Neutral - Affect Affect: Other (Appropriate) - Speech Speech: Appropriate - Formal Thought Process Formal Thought Process: No Impairment Psychotic Thoughts and Behaviors: None - Suicidal Ideation Suicidal Ideation: No - Homicidal Ideation Homicidal Ideation: No Goal/Treatment Plan - Goal/Treatment Plan Need for Continued Stay: Remain at risks for inpatient hospitalization, Discharge may exacerbated symptoms, Severe functional impairment Progress Toward Problem(s) and Goals/Treatment Plan: Patient education. Supportive therapy. Continue treatment as before. Estimated Date of D/C: 01/16/18 - Smoking Cessation Smoking Cessation Initiated: No
--- NOTE | 2018-01-16 15:51 | PCM.PYCHPN ---
Psychiatric Progress Note - Psychiatric Progress Note Patient seen today, length of contact: 15 min Patient Chief Complaint: I'm feeling much better. Problems Identified/Issues Discussed: Patient seen, chart reviewed, case discussed with the staff. Issues related to illness and treatment were discussed with the patient and staff. Reported compliant with treatment with no adverse effects. Tolerating treatment very well. Reported feeling better. Patient appears more coherent. Awake, alert and oriented 3. Calm and more cooperative. Mood reported as okay. Affect appropriate. Treatment discussed with the patient. Needs more time for stabilization. Aftercare discussed with the patient. Denied any delusions, auditory or visual hallucinations, suicidal ideations or homicidal ideations at the time of evaluation. Medical Problems: None reported Diagnostic Results: Reviewed DSM 5 Symptoms Update: Some improvement with treatment. Medication Change: No Medical Record Reviewed: Yes Mental Status Examination - Cognitive Function Orientation: Person, Place, Situation, Time Memory: Intact Attention: WNL Concentration: WNL Association: WNL Fund of Knowledge: [facility] Decription of patient's judgement and insights: Fair - Mood Mood: Neutral - Affect Affect: Blunted - Speech Speech: Appropriate - Formal Thought Process Formal Thought Process: No Impairment Psychotic Thoughts and Behaviors: None - Suicidal Ideation Suicidal Ideation: No - Homicidal Ideation Homicidal Ideation: No Goal/Treatment Plan - Goal/Treatment Plan Need for Continued Stay: Remain at risks for inpatient hospitalization, Discharge may exacerbated symptoms, Severe functional impairment Progress Toward Problem(s) and Goals/Treatment Plan: Patient education. Supportive therapy. Continue treatment as before. Estimated Date of D/C: 01/16/18 - Smoking Cessation Smoking Cessation Initiated: No
--- NOTE | 2018-01-17 16:10 | RAD ---
Chest x-ray two views HISTORY: Schizophrenia. COMPARISON: None available. FINDINGS: Mild venous congestion. Mild right hilar prominence Punctate nodular density at the medial aspect of the right lung apex. Heart size within normal limits. IMPRESSION: Mild venous congestion. Mild right hilar prominence Punctate nodular density at the medial aspect of the right lung apex.
[2018-01-17] MEDS: Aluminum Hydroxide/Magnesium Hydroxide Susp (30 mL) PO PRN (19:58)
--- NOTE | 2018-01-17 20:37 | PCM.PYCHPN ---
Psychiatric Progress Note - Psychiatric Progress Note Patient seen today, length of contact: 15 min Patient Chief Complaint: I'm feeling much better. Problems Identified/Issues Discussed: Patient seen, chart reviewed, case discussed with the staff. Issues related to illness and treatment were discussed with the patient and staff. Reported compliant with treatment with no adverse effects. Tolerating treatment very well. Reported feeling much better. Patient appears more coherent. Awake, alert and oriented 3. Calm and more cooperative. Mood reported as okay. Affect appropriate. Staff confirmed the above. Treatment discussed with the patient. Needs more time for stabilization. Aftercare discussed with the patient. foot worker started process for discharge to a halfway. Denied any delusions, auditory or visual hallucinations, suicidal ideations or homicidal ideations at the time of evaluation. Medical Problems: None reported Diagnostic Results: Reviewed DSM 5 Symptoms Update: Improvement with treatment. Medication Change: No Medical Record Reviewed: Yes Mental Status Examination - Cognitive Function Orientation: Person, Place, Situation, Time Memory: Intact Attention: WNL Concentration: WNL Association: [facility] Fund of Knowledge: [facility] Decription of patient's judgement and insights: Fair - Mood Mood: Neutral - Affect Affect: Other (Appropriate) - Speech Speech: Appropriate - Language Language: Word Retrieval - Formal Thought Process Formal Thought Process: No Impairment Psychotic Thoughts and Behaviors: None - Suicidal Ideation Suicidal Ideation: No - Homicidal Ideation Homicidal Ideation: No Goal/Treatment Plan - Goal/Treatment Plan Need for Continued Stay: Remain at risks for inpatient hospitalization, Dischar ge may exacerbated symptoms, Severe functional impairment Progress Toward Problem(s) and Goals/Treatment Plan: Patient education. Supportive therapy. Continue treatment as before. Estimated Date of D/C: 01/20/18 - Smoking Cessation Smoking Cessation Initiated: No
[2018-01-18 06:41] VITALS: O2SAT 100
[2018-01-18] MEDS: Aluminum Hydroxide/Magnesium Hydroxide Susp (30 mL) PO PRN (14:24)
--- NOTE | 2018-01-18 16:10 | PCM.PYCHPN ---
Psychiatric Progress Note - Psychiatric Progress Note Patient seen today, length of contact: 15 min Patient Chief Complaint: I'm feeling much better. Problems Identified/Issues Discussed: Patient seen, chart reviewed, case discussed with the staff. Issues related to illness and treatment were discussed with the patient and staff. Reported compliant with treatment with no adverse effects. Tolerating treatment very well. Reported feeling much better. Patient appears more coherent. Awake, alert and oriented 3. Calm and more cooperative. Mood reported as okay. Affect appropriate. Staff confirmed the above. Treatment discussed with the patient. Needs more time for stabilization. Aftercare discussed with the patient. silo worker started process for discharge to a [facility]. Denied any delusions, auditory or visual hallucinations, suicidal ideations or homicidal ideations at the time of evaluation. Medical Problems: None reported Diagnostic Results: Reviewed DSM 5 Symptoms Update: Improvement with treatment. Medication Change: No Medical Record Reviewed: Yes Mental Status Examination - Cognitive Function Orientation: Person, Place, Situation, Time Memory: Intact Attention: WNL Concentration: WNL Association: WN Fund of Knowledge: [facility] Decription of patient's judgement and insights: Fair - Mood Mood: Neutral - Affect Affect: Other (Appropriate) - Speech Speech: Appropriate - Language Language: Word Retrieval - Formal Thought Process Formal Thought Process: No Impairment Psychotic Thoughts and Behaviors: None - Suicidal Ideation Suicidal Ideation: No - Homicidal Ideation Homicidal Ideation: No Goal/Treatment Plan - Goal/Treatment Plan Need for Continued Stay: Remain at risks for inpatient hospitalization, D ischarge may exacerbated symptoms, Severe functional impairment Progress Toward Problem(s) and Goals/Treatment Plan: Patient education. Supportive therapy. Continue treatment as before. Estimated Date of D/C: 01/20/18 - Smoking Cessation Smoking Cessation Initiated: No
--- NOTE | 2018-01-19 11:43 | PCM.PYCHPN ---
Psychiatric Progress Note - Psychiatric Progress Note Patient seen today, length of contact: 15 min Patient Chief Complaint: I am feeling better.' Problems Identified/Issues Discussed: Patient seen and evaluated, chart reviewed and discussed with the nurse. Pt appears more organized and denies any delusions or any paranoia. He reports improvement in his psychosis and reports improvement in that irritability and agitation. However he remained isolative and withdrawn. Patient is compliant with medications and denies any side effects. He is waiting for the placement to the nursing home. Symptoms are improving but pt needs more time to stabilize. Support and psychoeducation given. Medication Change: Yes Medical Record Reviewed: Yes Mental Status Examination - Cognitive Function Orientation: Person, Place, Situation, Time Memory: Intact Attention: WNL Concentration: Poor Association: WNL Fund of Knowledge: Poor - Mood Mood: Neutral - Affect Affect: Other (Appropriate) - Speech Speech: Appropriate - Language Language: Word Retrieval - Formal Thought Process Formal Thought Process: Paranoia - Suicidal Ideation Suicidal Ideation: No - Homicidal Ideation Homicidal Ideation: No Goal/Treatment Plan - Goal/Treatment Plan Need for Continued Stay: Remain at risks for inpatient hospitalization, Discharge may exacerbated symptoms, Severe functional impairment Progress Toward Problem(s) and Goals/Treatment Plan: Bipolar disorder MRE depressed severe with psychotic features R/O Schizoaffective disorder bipolar type CBT Psychoeducation Supportive therapy, group therapy, individual therapy Cogentin 1 mg by mouth twice a day Trazodone 100 mg by mouth daily at bedtime Hydroxyzine 25 mg by mouth every 6 hours when necessary Topamax 100 mg by mouth twice a day Aripiprazole 30 mg by mouth daily at bedtime Haldol 10 mg p.o. twice daily Estimated Date of D/C: 01/20/18
--- NOTE | 2018-01-22 23:29 | PCM.PYCHPN ---
Psychiatric Progress Note - Psychiatric Progress Note Patient seen today, length of contact: 15 min Patient Chief Complaint: I am feeling jose luis.' Problems Identified/Issues Discussed: Patient seen and evaluated, chart reviewed and discussed with the nurse. He reports improvement in his psychosis and reports improvement in that irritability and agitation. Pt appears more organized and denies any delusions or any paranoia. However he remained isolative and withdrawn. Patient is compliant with medications and denies any side effects. He is waiting for the placement to the longterm. Symptoms are improving but pt needs more time to stabilize. Support and psychoeducation given. Medication Change: No Medical Record Reviewed: Yes Mental Status Examination - Cognitive Function Orientation: Person, Place, Situation, Time Memory: Intact Attention: WNL Concentration: Poor Association: WNL Fund of Knowledge: Poor - Mood Mood: Neutral - Affect Affect: Other (Appropriate) - Speech Speech: Appropriate - Language Language: Word Retrieval - Formal Thought Process Formal Thought Process: Paranoia - Suicidal Ideation Suicidal Ideation: No - Homicidal Ideation Homicidal Ideation: No Goal/Treatment Plan - Goal/Treatment Plan Need for Continued Stay: Remain at risks for inpatient hospitalization, Discharge may exacerbated symptoms, Severe functional impairment Progress Toward Problem(s) and Goals/Treatment Plan: Bipolar disorder MRE depressed severe with psychotic features R/O Schizoaffective disorder bipolar type CBT Psychoeducation Supportive therapy, group therapy, individual therapy Cogentin 1 mg by mouth twice a day Trazodone 100 mg by mouth daily at bedtime Hydroxyzine 25 mg by mouth every 6 hours when necessary Topamax 100 mg by mouth twice a day Aripiprazole 30 mg by mouth daily at bedtime Haldol 10 mg p.o. twice daily Estimated Date of D/C: 01/26/18
--- NOTE | 2018-01-22 23:30 | PCM.PYCHPN ---
Psychiatric Progress Note - Psychiatric Progress Note Patient seen today, length of contact: 15 min Patient Chief Complaint: I am feeling jose luis.' Problems Identified/Issues Discussed: Patient seen and evaluated, chart reviewed and discussed with the nurse. As per social services counselor, [facility] but he needs to fill out a couple of requirements He reports improvement in his psychosis and reports improvement in that irritability and agitation. Pt appears more organized and denies any delusions or any paranoia. However he remained isolative and withdrawn. Patient is compliant with medications and denies any side effects. Symptoms are improving but pt needs more time to stabilize. Support and psychoeducation given. Medication Change: No Medical Record Reviewed: Yes Mental Status Examination - Cognitive Function Orientation: Person, Place, Situation, Time Memory: Intact Attention: WNL Concentration: Poor Association: WNL Fund of Knowledge: Poor - Mood Mood: Neutral - Affect Affect: Other (Appropriate) - Speech Speech: Appropriate - Language Language: Word Retrieval - Formal Thought Process Formal Thought Process: No Impairment - Suicidal Ideation Suicidal Ideation: No - Homicidal Ideation Homicidal Ideation: No Goal/Treatment Plan - Goal/Treatment Plan Need for Continued Stay: Remain at risks for inpatient hospitalization, Discharge may exacerbated symptoms, Severe functional impairment Progress Toward Problem(s) and Goals/Treatment Plan: Bipolar disorder MRE depressed severe with psychotic features R/O Schizoaffective disorder bipolar type CBT Psychoeducation Supportive therapy, group therapy, individual therapy Cogentin 1 mg by mouth twice a day Trazodone 100 mg by mouth daily at bedtime Hydroxyzine 25 mg by mouth every 6 hours when necessary Topamax 100 mg by mouth twice a day Aripiprazole 30 mg by mouth daily at bedtime Haldol 10 mg p.o. twice daily Estimated Date of D/C: 01/26/18
--- NOTE | 2018-01-23 10:32 | PCM.PYCHPN ---
Psychiatric Progress Note - Psychiatric Progress Note Patient seen today, length of contact: 15 min Patient Chief Complaint: I am feeling jose luis.' Problems Identified/Issues Discussed: Patient seen and evaluated, chart reviewed and discussed with the nurse. As per social worker aide, [facility] he needs to fill out a couple of requirements He reports improvement in his psychosis and reports improvement in that irritability and agitation. Pt appears more organized and denies any delusions or any paranoia. However he remained isolative and withdrawn. Patient is compliant with medications and denies any side effects. Symptoms are improving but pt needs more time to stabilize. Support and psychoeducation given. Medication Change: No Medical Record Reviewed: Yes Mental Status Examination - Cognitive Function Orientation: Person, Place, Situation, Time Memory: Intact Attention: WNL Concentration: Poor Association: WNL Fund of Knowledge: Poor - Mood Mood: Neutral - Affect Affect: Other (Appropriate) - Speech Speech: Appropriate - Language Language: Word Retrieval - Formal Thought Process Formal Thought Process: No Impairment - Suicidal Ideation Suicidal Ideation: No - Homicidal Ideation Homicidal Ideation: No Goal/Treatment Plan - Goal/Treatment Plan Need for Continued Stay: Remain at risks for inpatient hospitalization, Discharge may exacerbated symptoms, Severe functional impairment Progress Toward Problem(s) and Goals/Treatment Plan: Bipolar disorder MRE depressed severe with psychotic features R/O Schizoaffective disorder bipolar type CBT Psychoeducation Supportive therapy, group therapy, individual therapy Cogentin 1 mg by mouth twice a day Trazodone 100 mg by mouth daily at bedtime Hydroxyzine 25 mg by mouth every 6 hours when necessary Topamax 100 mg by mouth twice a day Aripiprazole 30 mg by mouth daily at bedtime Haldol 10 mg p.o. twice daily Estimated Date of D/C: 01/26/18
--- NOTE | 2018-01-24 13:08 | PCM.PYCHPN ---
Psychiatric Progress Note - Psychiatric Progress Note Patient seen today, length of contact: 15 min Patient Chief Complaint: I'm feeling much better. Problems Identified/Issues Discussed: Patient seen, chart reviewed, case discussed with the staff. Issues related to illness and treatment were discussed with the patient and staff. Reported compliant with treatment with no adverse effects. Tolerating treatment very well. Reported feeling much better. Patient appears more coherent. Awake, alert and oriented 3. Calm and more cooperative. Mood reported as okay. Affect appropriate. Staff confirmed the above. Treatment discussed with the patient. Needs more time for stabilization. Aftercare discussed with the patient. assembly worker started process for discharge to a retirement. Denied any delusions, auditory or visual hallucinations, suicidal ideations or homicidal ideations at the time of evaluation. Medical Problems: None reported Diagnostic Results: Reviewed Medication Change: No Medical Record Reviewed: Yes Mental Status Examination - Cognitive Function Orientation: Person, Place, Situation, Time Memory: Intact Attention: WNL Concentration: Poor Association: WNL Fund of Knowledge: Poor - Mood Mood: Neutral - Affect Affect: Other (Appropriate) - Speech Speech: Appropriate - Language Language: Word Retrieval - Formal Thought Process Formal Thought Process: No Impairment - Suicidal Ideation Suicidal Ideation: No - Homicidal Ideation Homicidal Ideation: No Goal/Treatment Plan - Goal/Treatment Plan Need for Continued Stay: Remain at risks for inpatient hospitalization, Discharge may exacerbated symptoms, Severe functional impairment Progress Toward Problem(s) and Goals/Treatment Plan: Patient education. Supportive therapy. Continue treatment as before. Estimated Date of D/C: 01/26/18
[2018-01-25 06:52] VITALS: RESP 18
--- NOTE | 2018-01-25 23:15 | PCM.PYCHPN ---
Psychiatric Progress Note - Psychiatric Progress Note Patient seen today, length of contact: 15 min Patient Chief Complaint: I'm feeling much better. Problems Identified/Issues Discussed: Patient seen, chart reviewed, case discussed with the staff. Issues related to illness and treatment were discussed with the patient and staff. Reported compliant with treatment with no adverse effects. Tolerating treatment very well. Reported feeling much better. Patient appears more coherent. Awake, alert and oriented 3. Calm and more cooperative. Mood reported as okay. Affect appropriate. Staff confirmed the above. Treatment discussed with the patient. Needs more time for stabilization. Aftercare discussed with the patient. [place] support worker started process for discharge to a jail. Denied any delusions, auditory or visual hallucinations, suicidal ideations or homicidal ideations at the time of evaluation. Medical Problems: None reported Diagnostic Results: Reviewed Medication Change: No Medical Record Reviewed: Yes Mental Status Examination - Cognitive Function Orientation: Person, Place, Situation, Time Memory: Intact Attention: WNL Concentration: Poor Association: WNL Fund of Knowledge: Poor - Mood Mood: Neutral - Affect Affect: Other (Appropriate) - Speech Speech: Appropriate - Language Language: Word Retrieval - Formal Thought Process Formal Thought Process: No Impairment - Suicidal Ideation Suicidal Ideation: No - Homicidal Ideation Homicidal Ideation: No Goal/Treatment Plan - Goal/Treatment Plan Need for Continued Stay: Remain at risks for inpatient hospitalization, Discharge may exacerbated symptoms, Severe functional impairment Progress Toward Problem(s) and Goals/Treatment Plan: Patient education. Supportive therapy. Continue treatment as before. Estimated Date of D/C: 01/26/18
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
--- NOTE | 2018-01-27 01:24 | PCM.PYCHPN ---
Psychiatric Progress Note - Psychiatric Progress Note Patient seen today, length of contact: 15 min Patient Chief Complaint: I am feeling jose luis.' Problems Identified/Issues Discussed: Patient seen and evaluated, chart reviewed and discussed with the nurse. As per social and human services assistant, [facility] has [facility] but he needs to fill out a couple of requirements He reports improvement in his psychosis and reports improvement in that irritability and agitation. Pt appears more organized and denies any delusions or any paranoia. However he remained isolative and withdrawn. Patient is compliant with medications and denies any side effects. Symptoms are improving but pt needs more time to stabilize. Support and psychoeducation given. Medication Change: No Medical Record Reviewed: Yes Mental Status Examination - Cognitive Function Orientation: Person, Place, Situation, Time Memory: Intact Attention: WNL Concentration: Poor Association: WNL Fund of Knowledge: Poor - Mood Mood: Neutral - Affect Affect: Other (Appropriate) - Speech Speech: Appropriate - Language Language: Word Retrieval - Formal Thought Process Formal Thought Process: No Impairment - Suicidal Ideation Suicidal Ideation: No - Homicidal Ideation Homicidal Ideation: No Goal/Treatment Plan - Goal/Treatment Plan Need for Continued Stay: Remain at risks for inpatient hospitalization, Discharge may exacerbated symptoms, Severe functional impairment Estimated Date of D/C: 01/26/18
[2018-01-27 05:24] VITALS: BP 130/89; PULSE 105; TEMP 97.7
== END 2018-01-27 07:11 | disposition home or self-care (01) | DRG 430 ==
LOC: C.ER 21:15 → C.9E 21:30 → C.5E 21:46
PROVIDERS: ADMIT Psychiatry & Neurology Psychiatry; ATTEND Psychiatry & Neurology Psychiatry
PROC: GZ3ZZZZ Medication Management (ICD-10-PCS; principal; 2017-12-26)
PROC: GZHZZZZ Group Psychotherapy (ICD-10-PCS; 2017-12-26)
PROC: GZ56ZZZ Individual Psychotherapy, Supportive (ICD-10-PCS; 2017-12-26)
DX: F31.5 Bipolar disorder, current episode depressed, severe, with psychotic features (principal); F25.0 Schizoaffective disorder, bipolar type; F17.210 Nicotine dependence, cigarettes, uncomplicated